=== PATIENT | male | born 1995 | race Caucasian/White ===

== ENCOUNTER 2021-04-01 12:41 | Emergency (ER) | payer OTHER ==
[~2021-04-01] VITALS: Ht 177.8 cm; Wt 82.0 kg
[2021-04-01 12:50] VITALS: BP 128/70
[2021-04-01] MEDS ORDERED: IBUPROFEN 200 MG TABLET. PO ONE (13:00)
--- NOTE | 2021-04-01 13:11 | PHYS DOC ---
Past Medical History Past Surgical History: No Surgical History General Adult EDM: Chief Complaint: HEAD INJURY/TRAUMA HPI: HPI: Patient is a 25 year old male who presents from [facility] with chief complaint of head trauma. Patient reports he hit his head against the desk. When asked why, he responds, "I do not have a reason." Patient states that his pain is 4/10 in his central forehead and throbbing in nature. Patient denies loss of consciousness, memory deficit, visual acuity changes, blurred vision, bl ind spots, neck pain, eye/nose/ear pain, nausea, vomiting. Patient has no other complaints at this time. Review of Systems: Review of Systems: ROS negative except as mentioned in HPI. Heart Score: C/O Chest Pain: No Current Medications: Current Medications Medications (Trade) Dose Ordered Sig/Hollis Start Time Stop Time Status Last Admin Dose Admin Ibuprofen (Motrin) 600 mg 1X ONCE 04/01/21 13:00 04/01/21 13:01 UNV Allergies: Allergies: Allergies Coded Allergies Type Severity Reaction Last Updated Verified No Known Drug Allergies 04/01/21 No Physical Exam: PE: Constitutional: Well developed, well nourished, no acute distress, non-toxic appearance. HENT: 4 cm x 6 cm hematoma noted to central forehead extending into the hairline with small abrasion. Bilateral external ears normal, oropharynx moist, no oral exudates, nose normal. Eyes: PERRLA, EOMI, conjunctiva normal, no discharge. Neck: Normal range of motion, no step-offs, no bony tenderness, no paraspinal tenderness, supple, no stridor. Cardiovascular: Heart rate regular rhythm, no murmur. Lungs & Thorax: Bilateral breath sounds clear to auscultation. Skin: Warm, dry, no erythema, no rash. Neurologic: Alert and oriented x3, normal motor function, normal sensory function, no focal deficits noted. Current Patient Data: Vital Signs: Vital Signs Date Time Temp Pulse Resp B/P (MAP) Pulse Ox O2 Delivery O2 Flow Rate FiO2 04/01/21 12:50 98.2 81 17 128/70 (89) 97 Room Air 98.2 Course & Med Decision Making: Course & Med Decision Making Pertinent Labs and Imaging studies reviewed. (See chart for details) Using CHIP prediction rule, CT is not necessary as he is low risk for traumatic brain injury. Nexus C-spine rule also low risk, so imaging will not be required. Patient will be given ibuprofen in the department to treat his headache. Patient will be discharged back to facility. Patient is agreeable to discharge plan. [place] Disclaimer: Drag[place] Disclaimer: This electronic medical record was generated, in whole or in part, using a voice recognition dictation system. Departure Departure Impression: Primary Impression: Traumatic hematoma of head Qualified Codes: S00.93XA - Contusion of unspecified part of head, initial encounter Disposition: HOME / SELF CARE / HOMELESS Condition: STABLE Patient Instructions: Hematoma, [id number] Additional Instructions: Return to the emergency department if you experience vision changes, loss of consciousness, intractable nausea vomiting. You may continue to take ibuprofen as needed for headache. LULY HERNANDEZ Apr 01, 2021 13:11
== END 2021-04-01 13:16 | disposition home or self-care (01) ==
LOC: EEVIPCON 12:41 → ER 12:41
DX: S00.83XA Contusion of other part of head, initial encounter (principal); W22.8XXA Striking against or struck by other objects, initial encounter; Y93.89 Activity, other specified; Y92.89 Other specified places as the place of occurrence of the external cause; Y99.8 Other external cause status
CPT/HCPCS: 99283